=== PATIENT | male | born 1950 | race Two or more races ===

== ENCOUNTER 2025-04-10 09:54 | Day surgery (SDC) | payer MEDICARE, OTHER ==
[2025-04-07 14:23] LABS: BASOPHILS # (AUTO) 0.1 X10'3 (0-0.2); BASOPHILS % (AUTO) 0.5 % (0-1); EOSINOPHILS # (AUTO) 0.5 X10'3 (0-0.9); EOSINOPHILS % (AUTO) 4.2 % (0-6); LYMPHOCYTES # (AUTO) 2.3 X10'3 (1.1-4.8); LYMPHOCYTES % (AUTO) 20.3 % (21-51); MEAN CORPUSCULAR HEMOGLOBIN 27.7 PG (27.0-31.0); MEAN CORPUSCULAR HGB CONC 33.1 g/dL (33.0-36.5); MEAN CORPUSCULAR VOLUME 83.6 FL (78-98); MONOCYTES # (AUTO) 0.8 X10'3 (0-0.9); MONOCYTES % (AUTO) 7.4 % (2-12); NEUTROPHILS # (AUTO) 7.5 X10'3 (1.8-7.7); NEUTROPHILS % (AUTO) 67.6 % (42-75); PRE OP HEMATOCRIT 45.3 % (42.0-52.0); PRE OP PLATELET COUNT 279 X10'3 (140-440); PRE OP WHITE BLOOD COUNT 11.2 10'3 (4.8-10.8); RED BLOOD COUNT 5.43 X10'6 (4.70-6.10); RED CELL DISTRIBUTION WIDTH 15.4 % (11.5-14.5)
[2025-04-07 14:42] LABS: ALBUMIN/GLOBULIN RATIO 0.8 (1.1-1.5); ALKALINE PHOSPHATASE 93 IU/L (46-116); BLOOD UREA NITROGEN 13 MG/DL (7-18); BUN/CREATININE RATIO 15.9 (10.0-20.0); CHLORIDE 106 MMOL/L (99-107); CREATININE 0.82 MG/DL (0.60-1.10); PRE OP ALT 35 U/L (30-65); PRE OP ANION GAP 5 (8-16); PRE OP AST 17 U/L (10-37); PRE OP BILIRUB, TOTAL 0.5 MG/DL (0.0-1.0); PRE OP GLUCOSE 119 MG/DL (70-104); PRE OP POTASSIUM 4.3 MMOL/L (3.4-5.1); PRE OP SODIUM 139 MMOL/L (135-145); TOTAL CARBON DIOXIDE 28.4 MMOL/L (24-32); TOTAL PROTEIN 6.9 G/DL (6.4-8.2); eGFR > 90 ML/MIN
[~2025-04-10] VITALS: Ht 170.2 cm; Wt 66.1 kg
[2025-04-10] VITALS (11 sets, daily range): BP systolic 112–130; BP diastolic 61–74; PULSE 63–97; RESP 12–22; TEMP 98.9; O2SAT 93–97
[2025-04-10] MEDS: ceFAZolin 2gm/dext,iso 50mL 50 ML IV ONE (05:30)
[~2025-04-10 09:54] MED LIST: NO HOME MEDS; enalaprilat 1.25mg/ml 2ml vial IV PRN; labetalol 20mg/4ml (5mg/ml) syringe IV PRN; meperidine/PF 25mg/ml syringe IV PRN; morphine 2 MG/ML inj. syringe IV PRN; ondansetron/PF 4mg/2ml inj IV PRN; proCHLORperazine 10 MG/2 ml inj IV PRN; ringers solution, lacted 1,000 ML IV SCH
[2025-04-10] MEDS: tamsulosin 0.4mg capsule PO ONE (10:33)
[2025-04-10] MEDS: famotidine 20mg tablet PO ONE (10:34)
[2025-04-10] MEDS: ringers solution, lacted 1,000 ML IV SCH (10:34)
[2025-04-10] MEDS ORDERED: BUPIVAcaine 2.5mg/ml inj 50ml vial (contains preservative) ONE (12:21)
[2025-04-10] MEDS ORDERED: LIDOcaine 1% 30ml preserv. free vial ONE (12:21)
[2025-04-10] MEDS ORDERED: midazolam 1 mg/ML 2ml injection ONE (12:29)
[2025-04-10] MEDS ORDERED: rocuronium 10mg/ml inj IV ONE (12:29)
[2025-04-10] MEDS ORDERED: fentaNYL/PF 50MCG/1 ML 2ML syringe ONE (12:29)
[2025-04-10] MEDS ORDERED: LIDOcaine 1%/PF 5ML 10 MG/ML VIAL ONE (12:29)
[2025-04-10] MEDS ORDERED: propofol inj 20 ML IV ONE (12:29)
--- NOTE | 2025-04-10 12:37 | HISTORY AND PHYSICAL ---
History & Physical Providers to CC CC: DIXIE LYNCH MD ~ History of Present Illness Reason for Admit\Complaint: Bilateral inguinal hernia History of Present Illness Interval history and physical exam Patient was seen in my office about three months ago and confirmed to have symptomatic bilateral inguinal hernias He is here today for elective repair He denies any change in his past medical history since that visit (please see previous history and physical exam for all pertinent details) He is scheduled for robotic assisted, laparoscopic mesh repair of his bilateral inguinal hernias Allergies: Coded Allergies: prednisone (Verified Adverse Reaction, Unknown, CRAMPS, 04/09/25) Home Medications Home Medications Active Reported No Home Medications (Home Med List) Each Family History Family History: Patient reports no known family medical history. ROS ROS Reviewed and negative with the exception of those found in the history of present illness Exam Vitals: Vital Signs Date Time Temp Pulse Resp B/P (MAP) Pulse Ox O2 Delivery O2 Flow Rate FiO2 04/10/25 11:00 16 94 Room Air 04/10/25 10:58 63 04/10/25 10:57 98.9 121/73 (89) General: 74-year-old male in no acute distress Chest: Lungs clear to auscultation bilaterally Cardiovascular: Regular rate and rhythm without murmur Abdomen: Soft and nondistended Diagnostic Data Last Recorded Lab Results: 04/07/25 1416 04/07/25 1416 Problems: (1) Bilateral inguinal hernia Assessment & Plan: The risks, benefits, and alternatives to a robotic assisted, laparoscopic bilateral inguinal hernia repair with mesh were discussed with the patient. Risks include, but are not limited to, bleeding, infection, injury to intra-abdominal structures, hernia recurrence and chronic postoperative pain. Patient verbalized understanding and wishes to proceed with surgery. We will do so today as scheduled DIXIE LYNCH MD Apr 10, 2025 12:37
[2025-04-10] MEDS ORDERED: sevoflurane 250ml liquid IH ONE (12:45)
[2025-04-10] MEDS ORDERED: dexamethasone sod phosphate 4mg/ml inj. ONE (13:02)
[2025-04-10] MEDS ORDERED: ondansetron/PF 4mg/2ml inj ONE (13:02)
[2025-04-10] MEDS: BUPIVAcaine/PF 2.5 mg/ml (0.25%) 30ml vial IJ ONE (13:35)
[2025-04-10] MEDS ORDERED: ketorolac trometh 30MG/ML vial 30 MG/ML VIAL ONE (14:16)
[2025-04-10] MEDS ORDERED: HYDROcodone/acetaminophen 5mg/325mg tablet PO PRN (14:35)
--- NOTE | 2025-04-10 14:41 | OPERATIVE REPORT ---
Operative Report Providers to CC: MUKESH LYNCH MD ~ Date of Procedure: Apr 10, 2025 Pre-Operative Diagnosis: Bilateral inguinal hernia Post-Operative Diagnosis Bilateral inguinal hernia 1 cm umbilical hernia Procedure Performed Robotic assisted, laparoscopic bilateral inguinal hernia repair with mesh 1 cm umbilical hernia repair Surgeon: Mukesh Lynch MD FACS Title Insurance Sales Representative None Anesthesiologist: Sukumar Pete Type of Anesthesia: General Findings: Very large indirect right inguinal hernia Small indirect left inguinal hernia Distended urinary bladder with significant amount of urine Wound Class I Complications None Prosthetics\Implants used: Large right and median left Dextile inguinal hernia mesh Estimated Blood Loss: Minimal Specimen Removed: None Description of Procedure: Patient was brought to the operating room and identified by the nursing staff and the attending physician. Patient was placed supine and general anesthesia was induced. The patient's abdomen was prepped and draped in the standard sterile fashion. Preoperative antibiotics were given. Supraumbilical, midline incision was made to accommodate a 12 mm De Dios port. During dissection, a small hernia sac and a 1 cm umbilical hernia defect was encountered. The fascial edges were freshened and the defect was used for De Dios port placement. De Dios technique was used to gain access into the abdomen and the port was anchored to the fascia with 0 Vicryl suture. Abdomen was insufflated without incident. Laparoscope was inserted and the pelvis examined. Patient was placed in Trendelenburg position. Secondary, 8.5 mm robotic trochars were then placed in the right lateral left lateral upper abdomen just above the umbilical line. These were placed under laparoscopic guidance. Local anesthetic was infiltrated prior to their insertion. The da Karen robotic arm was docked to the patient. Instruments were guided intra-abdominally under laparoscopic visualization. Peritoneal rent was created starting at the left anterior superior iliac spine and carried across the anterior abdominal wall to the contralateral anterior superior iliac spine. The peritoneal flap was created and carried down to the symphysis pubis. Dissection was carried out bilaterally. On the right, a fairly large indirect inguinal hernia was encountered. There was portion of the urinary bladder within the hernia sac. Bladder and hernia sac were completely reduced. On the left, a much smaller indirect inguinal hernia was encountered. The sac was also reduced. Peritoneum was bilaterally, mobilized away from the cord structures. Peritoneum was dissected away from the cord structures and out laterally to a ccommodate 2 separate pieces of Dextile mesh; medium on the left and large on the right. Bilateral critical views of the myopectineal orifice were obtained. Mesh and suture was passed into the abdomen. Bilateral mesh was placed covering potential obturator, femoral, direct, and indirect hernia spaces. Mesh was anchored at Kvein's ligament, rectus muscle in the midline, and out laterally just anterior to the anterior superior iliac spine. Mesh laid without wrinkles or folds. Peritoneal rent was then reapproximated with running, absorbable 2/0 V-lock suture. [place] were retrieved. Abdomen was allowed to desufflate after instruments removed and da Karen robotic arm undocked from the patient. Umbilical port was removed as were the secondary trochars. The fascia at the umbilical port site was closed with a combination of 0 Ethibond and 0 Vicryl sutures, thus repairing the umbilical fascial defect. Skin was closed at all sites with 4-0 Monocryl sutures in a subcuticular fashion. Sterile dressings were applied. Patient was awakened and taken to the postanesthesia care unit in stable condition. Counts repoted as correct: Yes MUKESH LYNCH MD Apr 10, 2025 14:41
[2025-04-10] MEDS: morphine 4 MG/ML inj SYRINge IV PRN (15:08)
== END 2025-04-10 15:59 | disposition home or self-care (01) ==
LOC: PAS 09:54
PROVIDERS: ATTEND Surgery
DX: K40.20 Bilateral inguinal hernia, without obstruction or gangrene, not specified as recurrent (principal); K42.9 Umbilical hernia without obstruction or gangrene; I25.2 Old myocardial infarction; M19.90 Unspecified osteoarthritis, unspecified site; Z98.890 Other specified postprocedural states; Z88.8 Allergy status to other drugs, medicaments and biological substances; Z79.899 Other long term (current) drug therapy
CPT/HCPCS: 36415; 49591; 49650; 80053; 82948; 85025; A4215; A4618; C1781; J1100; J1885; J2003; J2175; J2250; J2270; J2405; J2704; J2710; J3010; J3490; J7030; J7120; Z7506; Z7508; Z7512; Z7610